=== PATIENT | male | born 1995 | race Asian ===

== ENCOUNTER 2019-03-09 13:35 | Emergency (ER) | payer OTHER ==
[~2019-03-09] VITALS: Ht 177.8 cm; Wt 63.5 kg
--- NOTE | 2019-03-09 13:45 | NUR ---
Patient triaged and placed in waiting room. VSS and patient appears in no acute distress at this time. Accompanied by friend , awaiting available bed, and MD notified of need for MSE.
[2019-03-09 13:49] VITALS: BP_SYST 145
--- NOTE | 2019-03-09 14:33 | NUR ---
Per registration pt LWBS
== END 2019-03-09 14:33 | disposition left against medical advice (07) ==
LOC: SED 13:35
DX: R10.9 Unspecified abdominal pain (principal); Z53.21 Procedure and treatment not carried out due to patient leaving prior to being seen by health care provider

== ENCOUNTER 2019-03-10 11:05 | Emergency (ER) | payer OTHER ==
[~2019-03-10] VITALS: Ht 177.8 cm; Wt 65.8 kg
[2019-03-10 11:17] VITALS: BP_SYST 123
--- NOTE | 2019-03-10 11:21 | NUR ---
Patient to ER bed 05 for evaluation. Side rails up.
--- NOTE | 2019-03-10 11:25 | NUR ---
Patient came in with complaint of abd pain. Patient complaint of pain is 4/10 non radiating and generalized in abdomen. Patient not presenting any signs of acute distress.
--- NOTE | 2019-03-10 11:36 | NUR ---
ER Dr. Daniels at bedside examining patient.
--- NOTE | 2019-03-10 12:00 | NUR ---
Patient declined IV start and EKG. MD Daniels is aware. Will wait for labs and urine results.
[2019-03-10 12:14] LABS: BASOPHILS % (AUTO) 0.5 % (0.0-2.0); EOSINOPHILS % (AUTO) 0.5 % (0.0-4.0); HEMATOCRIT 46.6 % (36-54); HEMOGLOBIN 15.6 g/dL (14.0-18.0); LYMPHOCYTES # (AUTO) 1.5 K/uL (1.0-5.5); LYMPHOCYTES % (AUTO) 38.9 % (20.5-51.5); MEAN CORPUSCULAR HEMOGLOBIN 30 pg (27-31); MEAN CORPUSCULAR HGB CONC 33 % (32-36); MEAN CORPUSCULAR VOLUME 88 fL (79.0-98.0); MONOCYTES # (AUTO) 0.2 K/uL (0.0-1.0); MONOCYTES % (AUTO) 6.2 % (1.7-9.3); NEUTROPHILS % (AUTO) 53.9 % (40.0-70.0); PLATELET COUNT (AUTO) 274 K/uL (130-430); RED BLOOD CELL COUNT(AUTO) 5.27 MIL/uL (4.2-6.2); WHITE BLOOD COUNT (AUTO) 3.7 K/uL (4.8-10.8)
[2019-03-10 12:17] LABS: CREATININE 0.93 mg/dL (0.55-1.30); POTASSIUM 3.9 mmol/L (3.5-5.1)
[2019-03-10 12:22] LABS: PROTHROMBIN TIME 10.5 SECS (9.5-12.5)
[2019-03-10 12:23] LABS: ALBUMIN 4.5 g/dL (3.4-4.8); TOTAL BILIRUBIN 0.8 mg/dL (0.0-1.0)
[2019-03-10 12:24] LABS: BILIRUBIN,URINE NEGATIVE (NEGATIVE); BLOOD, URINE 1+ (NEGATIVE); CLARITY/URINE CLEAR (CLEAR); COLOR,URINE YELLOW (YELLOW); GLUCOSE,URINE NEGATIVE (NEGATIVE); KETONES,URINE 1+ (NEGATIVE); LEUKOCYTE ESTERASE ,URINE TRACE (NEGATIVE); NITRITE, URINE NEGATIVE (NEGATIVE); PROTEIN URINE NEGATIVE (NEGATIVE); UROBILINOGEN,URINE 0.2 (0.2-1.0)
[2019-03-10 12:49] LABS: BACTERIA,URINE FEW /HPF (None Seen); RBC,URINE 0-3 /HPF (0-3)
--- NOTE | 2019-03-10 13:25 | NUR ---
Patient given written and verbal discharge instructions and verbalizes understanding. ER MD discussed with patient the results and treatment provided. Patient in stable condition. ID arm band removed. IV catheter removed intact and dressing applied, no active bleeding. Rx of Tynelol given. Patient educated on pain management and to follow up with PMD. Pain Scale 0/10. Opportunity for questions provided and answered. Medication side effect fact sheet provided.
[2019-03-10 13:28] VITALS: BP_SYST 123
== END 2019-03-10 13:25 | disposition home or self-care (01) ==
LOC: SED 11:05
DX: R10.11 Right upper quadrant pain (principal); K46.9 Unspecified abdominal hernia without obstruction or gangrene
CPT/HCPCS: 36415; 71045; 80053; 81000-TC; 82150-TC; 82550-TC; 83690-TC; 85025; 85610-TC; 85730-TC; 99284